=== PATIENT | female | born 1970 | race Caucasian/White ===

== ENCOUNTER 2022-06-27 07:42 | Inpatient (IN) ==
[2022-06-27] MEDS ORDERED: SODIUM CHLORIDE 0.9% 1,000 ML IV ONE (07:59)
[2022-06-27 08:26] LABS: Basophils # 0.1 10*3/uL (0.0-0.2); Eosinophils # 0.3 10*3/uL (0.0-0.87); Eosinophils % 2.6 % (0.00-10.9); Hematocrit 43.3 VOL% (35.7-47.0); Hemoglobin 14.1 GM/DL (12.0-16.0); Immature Granulocytes % 0.4 %; Immature Granulocytes Absolute 0.04 #; Lymphocytes # 3.6 10*3/uL (1.4-4.0); Lymphocytes % 34.2 % (21.3-54.2); Mean Corpuscular HGB Conc 32.6 GM/DL (32-36); Mean Corpuscular Volume 85.9 FL (87-102); Mean Platelet Volume 11.5 FL (9.6-12.0); Monocytes # 0.6 10*3/uL (0.11-0.8); Monocytes % 5.7 % (1.7-12.7); Neutrophils % 56.1 % (38.7-73.9); Platelet Count 235 T/CUMM (130-400); Red Blood Count 5.04 MC/CUMM (3.8-5.5); Red Cell Distribution Width 17.4 % (9.3-17.3); White Blood Count 10.5 T/CUMM (4-12)
[2022-06-27 09:12] LABS: Alanine Aminotransferase 22 U/L (13-56); Albumin 4.1 G/DL (3.4-5.0); Alkaline Phosphatase 122 U/L (45-117); Aspartate Amino Transferase 9 U/L (0-37); Bilirubin,Total < 0.39 MG/DL (0.20-1.00); Blood Urea Nitrogen 13 MG/DL (7-18); Calcium 9.6 MG/DL (8.5-10.1); Carbon Dioxide 25 MMOL/L (21-32); Chloride 110 MMOL/L (98-107); Glucose 113 MG/DL (74-106); Potassium 3.7 MMOL/L (3.5-5.1); Sodium 143 MMOL/L (136-145); Total Protein 7.5 G/DL (6.4-8.2)
[2022-06-27] MEDS ORDERED: ONDANSETRON 4 MG/2 ML VIAL IV PRN (10:07)
[2022-06-27] MEDS ORDERED: HYDROmorphone 1 MG/1 ML SYRINGE IV PRN (10:07)
[2022-06-27] MEDS ORDERED: ACETAMINOPHEN 325 MG TABLET PO PRN (10:07)
[2022-06-27] MEDS: PIPERACILLIN/TAZOBACTAM 3,375 MG in SODIUM CHLORIDE 0.9% 100 ML IV SCH ×2 (11:01→18:23)
[2022-06-27] MEDS: DEXTROSE 5% LACTATED RINGERS 1,000 ML IV SCH ×3 (12:05→19:34)
[2022-06-27] MEDS ORDERED: BUPIVACAINE 0.5% 50 ML VIAL ONE (12:19)
[2022-06-27] MEDS ORDERED: propofoL 200 MG/20 ML VIAL IV ONE (12:20)
[2022-06-27] MEDS ORDERED: DEXAMETHASONE 4 MG/1 ML VIAL ONE (12:20)
[2022-06-27] MEDS ORDERED: KETAMINE 500 MG/10 ML VIAL ONE (12:20)
[2022-06-27] MEDS ORDERED: LIDOCAINE 2% 5 ML VIAL ONE (12:20)
[2022-06-27] MEDS ORDERED: ONDANSETRON 4 MG/2 ML VIAL ONE (12:20)
[2022-06-27] MEDS ORDERED: LACTATED RINGERS 1,000 ML IV ONE (12:47)
[2022-06-27] MEDS ORDERED: SUGAMMADEX 200 MG/2 ML VIAL IV ONE (13:33)
[2022-06-27] MEDS ORDERED: KETOROLAC 30 MG/1 ML VIAL ONE (13:37)
[2022-06-27] MEDS ORDERED: SEVOFLURANE 1 UNIT/15 MINUTE INH ONE (13:37)
[2022-06-28] MEDS: PIPERACILLIN/TAZOBACTAM 3,375 MG in SODIUM CHLORIDE 0.9% 100 ML IV SCH (02:47)
[2022-06-28 04:37] LABS: Basophils # 0.1 10*3/uL (0.0-0.2); Basophils % 0.5 % (0.0-0.8); Eosinophils # 0.2 10*3/uL (0.0-0.87); Eosinophils % 2.4 % (0.00-10.9); Hematocrit 35.2 VOL% (35.7-47.0); Hemoglobin 11.3 GM/DL (12.0-16.0); Immature Granulocytes % 0.3 %; Immature Granulocytes Absolute 0.03 #; Lymphocytes # 2.7 10*3/uL (1.4-4.0); Lymphocytes % 27.7 % (21.3-54.2); Mean Corpuscular HGB Conc 32.1 GM/DL (32-36); Mean Corpuscular Volume 88.2 FL (87-102); Mean Platelet Volume 11.9 FL (9.6-12.0); Monocytes # 0.6 10*3/uL (0.11-0.8); Monocytes % 6.3 % (1.7-12.7); Neutrophils % 62.8 % (38.7-73.9); Platelet Count 197 T/CUMM (130-400); Red Blood Count 3.99 MC/CUMM (3.8-5.5); Red Cell Distribution Width 16.4 % (9.3-17.3); White Blood Count 9.85 T/CUMM (4-12)
[2022-06-28 05:08] LABS: Calcium 8.6 MG/DL (8.5-10.1); Osmolality,Calculated 289.7 MOS/KG (273-304); Potassium 3.7 MMOL/L (3.5-5.1)
[2022-06-28] MEDS: DEXTROSE 5% LACTATED RINGERS 1,000 ML IV SCH (06:20)
[2022-06-28 08:42] VITALS: BP 120/66
== END 2022-06-28 13:14 | disposition home or self-care (01) | DRG 355 ==
LOC: N.ED 07:42 → N.2W 07:42 → OBSVTOIN 10:07 → N.2W 12:00
PROVIDERS: ADMIT Surgery; ATTEND Surgery